=== PATIENT | female | born 1985 | race Caucasian/White ===

== ENCOUNTER 2022-08-10 06:40 | Inpatient (IN) ==
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
[2022-08-10 06:28] LABS: Basophils # (auto) 0.04 K/uL (0-0.2); Basophils % (auto) 0.5 %; Eosinophils # (auto) 0.11 K/uL (0-0.50); Eosinophils % (auto) 1.3 %; Hematocrit (blood only) 34.2 % (34.1-44.9); Hemoglobin 12.3 g/dl (12.0-16.0); Immature Granulocytes # (auto) 0.07 K/uL (0.00-0.02); Immature Granulocytes % (auto) 0.8 %; Lymphocytes # (auto) 1.24 K/uL (1.2-3.4); Mean Corpuscular Hemoglobin 34.1 pg (25.0-34.0); Mean Corpuscular Volume 94.7 fL (80.0-100.0); Monocytes # (auto) 0.47 K/uL (0.24-0.82); Monocytes % (auto) 5.7 %; Neutrophils # (auto) 6.35 K/uL (1.4-6.5); Neutrophils % (auto) 76.7 %; Platelet Count 182 K/uL (130-400); RDW Coefficient of Variation 12.5 % (11.5-14.5); RDW Standard Deviation 42.9 fL (36.4-46.3); Red Blood Count 3.61 M/uL (3.93-5.22); White Blood Count 8.28 K/ul (4.8-10.8)
[~2022-08-10 06:40] MED LIST: SODIUM CHLORIDE 0.9% 250 ML IV PRN
[2022-08-10] MEDS ORDERED: LACTATED RINGER'S 1,000 ML IV SCH ×2 (07:15→09:15)
[2022-08-10] MEDS ORDERED: CITRIC ACID/SODIUM CITRATE 15 ML UDC ONE (07:37)
[2022-08-10] MEDS ORDERED: PROMETHAZINE HCL 25 MG in SODIUM CHLORIDE 0.9% 50 ML IV PRN (07:43)
[2022-08-10] MEDS ORDERED: NALOXONE HCL 1 MG in SODIUM CHLORIDE 0.9% 1000ML 1,000 ML IV PRN (07:43)
[2022-08-10] MEDS ORDERED: NALOXONE HCL 0.4 MG/1 ML VIAL/CARP IV PRN (07:43)
[2022-08-10] MEDS ORDERED: ePHEDrine sulfate 50 MG/ML AMP IV PRN (07:43)
[2022-08-10] MEDS ORDERED: HYDROmorphone INJ 0.5 MG/0.5 ML SYR IV PRN (07:43)
[2022-08-10] MEDS ORDERED: NALOXONE HCL 0.08 MG in SYRINGE 1.8 ML IV PRN (07:43)
[2022-08-10] MEDS ORDERED: MoRPHine SULFATE 2 MG/ML CARP IV PRN (07:43)
[2022-08-10] MEDS ORDERED: LACTATED RINGER'S 500 ML IV PRN (07:43)
[2022-08-10] MEDS ORDERED: MoRPHine SULFATE PF 1 MG/ML 10 ML AMP/VIAL INT SPINAL ONE (07:43)
[2022-08-10] MEDS ORDERED: ONDANSETRON INJ 2 MG/ML 2 ML VIAL IV PRN (07:43)
[2022-08-10] MEDS ORDERED: DC INTRASPINAL MORPHINE SCH (07:45)
[2022-08-10] MEDS ORDERED: MoRPHine SULFATE PF 1 MG/ML 10 ML AMP/VIAL ONE (07:45)
[2022-08-10] MEDS ORDERED: SODIUM CHLORIDE 0.9% 1000ML 1,000 ML IV SCH (07:45)
[2022-08-10] MEDS ORDERED: NO NARCOTICS OR SEDATIVES SCH (07:45)
[2022-08-10] MEDS ORDERED: OXYTOCIN 10 UNITS/ML 10ML VIAL ONE (08:50)
[2022-08-10] MEDS ORDERED: PHENYLEPHRINE 100MCG/ML 5ML SYR ONE (08:50)
[2022-08-10] MEDS ORDERED: ePHEDrine sulfate 50 MG/ML SYR ONE (08:50)
--- NOTE | 2022-08-10 09:09 | History & Physical Bridge Note ---
Date of Service August 10, 2022 History & Physical Bridge Note I have examined the patient, reviewed the History & Physical and in the interval since the performance of the History & Physical I have noted the following changes of clinical significance: no changes noted
[2022-08-10] MEDS ORDERED: BENZOCAINE 20% AER SPR 82.5 GM CAN EXT PRN (09:13)
[2022-08-10] MEDS ORDERED: SENNA 8.6 MG TAB PO PRN (09:13)
[2022-08-10] MEDS ORDERED: DIPHTHERIA/TETANUS/PERTUSSIS 0.5 ML SYR/VIAL IM ONE (09:13)
[2022-08-10] MEDS ORDERED: HYDROCORTISONE ACETATE 25 MG SUPP PR PRN (09:13)
[2022-08-10] MEDS ORDERED: MAGNESIUM HYDROXIDE SUSP 30 ML UDC PO PRN (09:13)
--- NOTE | 2022-08-10 09:16 | Post Operative Brief Note ---
Immediate Post Op Note v1 Date of Surgery August 10, 2022 Pre & Post Diagnosis Operation Date: 08/10/22 07:30 Pre-Op Diagnosis: 1. Elective Repeat Section 2. Voluntary Sterilization Post-Op Diagnosis: 1. Same I identified the patient and participated in the time-out.: Yes Procedure Operation Date: 08/10/22 07:30 Actual Procedures p Section in LD; Repeat Lower Uterine Transverse Section for the of a live boy at 0820.(Bilateral) - Huan Sandoval MD Surgeon Huan Sandoval MD Global Cmo Dr. Suh Estimated Blood Loss 600 Findings Consistent with Post-Op Diagnosis live male Apgars 8/9 weight pending Fluids LR Specimens placenta bilateral fallopian tubes Drains Gudino Catheter Anesthesia Type Spinal Complications none Overlapping Procedure I was present for: the critical portions of procedure. I was immediately available: during the entire case. Back up surgeon: used during listed procedure.
[2022-08-10] MEDS: diphenhydrAMINE 50 MG/ML VIAL IV PRN ×2 (10:15→20:28)
[2022-08-10] MEDS ORDERED: miSOPROStoL 200 MCG TAB ONE (10:27)
[2022-08-10] MEDS ORDERED: OXYTOCIN 30 UNITS/500ML NSS IV ONE (10:28)
[2022-08-10] MEDS ORDERED: METHYLERGONOVINE MALEATE 0.2 MG/ML AMP ONE (10:30)
[2022-08-10] MEDS ORDERED: METHYLERGONOVINE MALEATE 0.2 MG/ML AMP IM STA (10:36)
[2022-08-10] MEDS ORDERED: miSOPROStoL 200 MCG TAB PR ONE (10:36)
--- NOTE | 2022-08-10 10:38 | Obstetrical Progress Note ---
Date of Service August 10, 2022 Subjective continues to pass large clots Physical Exam Constitutional WD/WN, vitals as above Cytotec 1000 mcg placed rectally Methergine .2 mg IM given Results & Data ([facility]) Vital Signs (Past 12 Hours) Vital Signs Temp Pulse Resp BP Pulse Ox O2 Del Method 08/10/22 10:04 16 08/10/22 09:54 16 08/10/22 09:44 14 08/10/22 09:34 18 08/10/22 09:24 16 08/10/22 09:13 36.4 C L 18 08/10/22 10:35 67 98/52 L 08/10/22 10:34 71 100 08/10/22 10:29 81 100 08/10/22 10:30 110/55 L 08/10/22 10:28 69 104/54 L 08/10/22 10:24 72 100 08/10/22 10:19 80 100 08/10/22 10:14 100 08/10/22 10:14 82 08/10/22 10:14 85 114/62 08/10/22 10:09 82 100 08/10/22 10:04 92 H 111/72 98 08/10/22 09:59 71 99 08/10/22 09:54 107 H 97 08/10/22 09:49 97 H 98 08/10/22 09:48 86 128/87 08/10/22 09:44 76 97 08/10/22 09:39 88 97 08/10/22 09:34 81 110/57 L 97 08/10/22 09:29 87 97 08/10/22 09:24 98 08/10/22 09:24 81 08/10/22 09:24 92 H 109/68 08/10/22 09:19 85 94 08/10/22 09:14 94 08/10/22 09:14 84 08/10/22 09:14 81 94 08/10/22 09:13 92 H 118/64 08/10/22 07:17 76 128/74 08/10/22 06:08 18 08/10/22 06:08 36.7 C 18 08/10/22 05:57 36.7 C 18 Room Air
[2022-08-10] MEDS: KETOROLAC 30 MG/ML VIAL IV PRN ×2 (10:43→17:03)
[2022-08-10] MEDS: OXYTOCIN 30 UNITS in LACTATED RINGER'S 1,000 ML IV SCH ×2 (11:11→15:19)
[2022-08-10] MEDS ORDERED: ACETAMINOPHEN 1,000 MG/100 ML VIAL IV STA (13:59)
[2022-08-10] MEDS: SIMETHICONE 80 MG CHEW PO SCH ×3 (14:32→20:28)
--- NOTE | 2022-08-10 14:57 | Anesthesiology Progress Note ---
Date of Service August 10, 2022 Anesthesia Post Procedure Vital Signs Vital Signs: Temp Pulse Resp BP Pulse Ox O2 Del Method 08/10/22 13:45 18 08/10/22 11:14 36.7 C 20 08/10/22 11:14 18 08/10/22 10:44 22 08/10/22 10:14 20 08/10/22 10:04 16 08/10/22 09:54 16 08/10/22 09:44 14 08/10/22 09:34 18 08/10/22 09:24 16 08/10/22 09:13 36.4 C L 18 08/10/22 14:54 91 H 98 08/10/22 14:49 101 H 97 08/10/22 14:44 98 H 97 08/10/22 14:39 109 H 99 08/10/22 14:34 105 H 99 08/10/22 14:29 106 H 97 08/10/22 14:24 94 H 98 08/10/22 14:19 89 99 08/10/22 14:14 107 H 100 08/10/22 14:09 98 H 99 08/10/22 14:04 90 98 08/10/22 13:59 100 H 99 08/10/22 13:54 96 H 98 08/10/22 13:49 97 08/10/22 13:49 102 H 08/10/22 13:49 84 107/66 08/10/22 13:44 122 H 100 08/10/22 13:39 110 H 99 08/10/22 13:34 109 H 99 08/10/22 13:29 111 H 98 08/10/22 13:24 86 100 08/10/22 13:19 82 99 08/10/22 13:14 80 100 08/10/22 13:09 91 H 100 08/10/22 13:04 75 100 08/10/22 12:59 98 H 100 08/10/22 12:54 98 H 100 08/10/22 12:49 115 H 98 08/10/22 12:44 125 H 98 08/10/22 12:39 122 H 98 08/10/22 12:34 112 H 97 08/10/22 12:29 129 H 97 08/10/22 12:24 100 H 97 08/10/22 12:19 114 H 98 08/10/22 12:14 102 H 97 08/10/22 12:09 109 H 97 08/10/22 12:04 94 H 99 08/10/22 11:59 111 H 99 08/10/22 11:54 110 H 99 08/10/22 11:49 112 H 100 08/10/22 11:47 103 H 148/86 H 08/10/22 11:44 105 H 98 08/10/22 11:39 60 98 08/10/22 11:34 70 97 08/10/22 11:31 65 112/69 08/10/22 11:29 65 99 08/10/22 11:24 71 99 08/10/22 11:19 75 100 08/10/22 11:17 62 104/56 L 08/10/22 11:14 78 99 08/10/22 11:09 76 100 08/10/22 11:04 64 100 08/10/22 11:03 70 124/67 08/10/22 10:59 75 100 08/10/22 10:54 84 100 08/10/22 10:55 67 114/70 08/10/22 10:51 66 107/55 L 08/10/22 10:49 73 100 08/10/22 10:47 75 131/82 08/10/22 10:44 75 99 08/10/22 10:42 78 114/63 08/10/22 10:40 80 114/66 08/10/22 10:39 69 100 08/10/22 10:38 67 104/53 L 08/10/22 10:36 65 105/57 L 08/10/22 10:35 67 98/52 L 08/10/22 10:34 71 100 08/10/22 10:29 81 100 08/10/22 10:30 110/55 L 08/10/22 10:28 69 104/54 L 08/10/22 10:24 72 100 08/10/22 10:19 80 100 08/10/22 10:14 100 08/10/22 10:14 82 08/10/22 10:14 85 114/62 08/10/22 10:09 82 100 08/10/22 10:04 92 H 111/72 98 08/10/22 09:59 71 99 08/10/22 09:54 107 H 97 08/10/22 09:49 97 H 98 08/10/22 09:48 86 128/87 08/10/22 09:44 76 97 08/10/22 09:39 88 97 08/10/22 09:34 81 110/57 L 97 08/10/22 09:29 87 97 08/10/22 09:24 98 08/10/22 09:24 81 08/10/22 09:24 92 H 109/68 08/10/22 09:19 85 94 08/10/22 09:14 94 08/10/22 09:14 84 08/10/22 09:14 81 94 08/10/22 09:13 92 H 118/64 08/10/22 07:17 76 128/74 08/10/22 06:08 18 08/10/22 06:08 36.7 C 18 08/10/22 05:57 36.7 C 18 Room Air Transfer of Care Handoff Completed per policy Notes Mental Status: alert / awake / arousable and participated in evaluation Patient Amnestic to Procedure: Yes Nausea / Vomiting: adequately controlled Pain: adequately controlled Airway Patency, RR, SpO2: stable & adequate BP & HR: stable & adequate Hydration State: stable & adequate Anesthetic Complications: no major complications apparent
[2022-08-10] MEDS: NALBUPHINE HCL INJ 10 MG/ML AMP IV PRN ×3 (15:53→23:54)
[2022-08-10] MEDS: DOCUSATE SODIUM 100 MG CAP PO SCH (20:28)
--- NOTE | 2022-08-10 23:29 | Operative Report (OR) ---
DATE OF SURGERY: 08/10/2022. PREOPERATIVE DIAGNOSES: Term elective repeat section and voluntary sterilization procedure. POSTOPERATIVE DIAGNOSES: Term elective repeat section and voluntary sterilization procedure . SURGEON: Huan Sandoval MD. SURGICAL ELASTIC KNITTER HAND FRAME: Shagufta Suh MD. ESTIMATED BLOOD LOSS: 600 mL. FINDINGS: Live male, Apgars 8 and 9, weight pending. SPECIMENS: Placenta and fallopian tubes. DRAINS: Gudino. ANESTHESIA: Spinal. COMPLICATIONS: None. CLINICAL HISTORY: The patient is a 37-year-old female, para 5-0-2-5, at 39 weeks and 3 days, admitte d for an elective repeat section and bilateral salpingectomy. The patient refused to underg o a trial of labor. She would like her tubes tied at the same time. I gave her informed consent incl uding risks, benefits, and alternatives of the procedure and the reasons behind the salpingectomy rat her than a tubal ligation. DESCRIPTION OF PROCEDURE: Under satisfactory spinal anesthesia, the patient was prepped and draped i n the usual sterile fashion. A low Pfannenstiel incision through a prior scar was then made entering into the abdominal cavity in successive layers without difficulty. Upon entering into the abdominal cavity, the uterus was noted to be dextrorotated. Bladder flap was made sharply dissecting down usi ng Metzenbaum scissors. A low segment transverse incision over the lower uterine segment was made. The incision was widened in the AP diameter. The amniotic sac was nicked and found to be clear. was then delivered wi th the aid of fundal pressure by Dr. Suh, delivering a live male from the vertex presentation. The cord was doubly clamped and cut after a 1 minute cord delay. Apgars were 8 and 9. weight was pending. Cord blood was obtained. Placenta was then delivered spontaneously and intact. Uterus was expressed of all clots and debris. Ring forceps were then placed on both angles, another ring was then used to dilate the cervix. The uterus was closed in a single layer closure using 0 Xavier ryl suture in a continuous interlocking fashion. Incision was dry. No active bleeding was noted. B oth tubes, ovaries were inspected and found to be within normal limits. Right tube was then identified. Baxley clamp was then applied to the tube and using the handheld RadioFrame gaSure device, the tube was cut free without any difficulty. Same procedure was done on the opposite side without difficulty. The specimens were then removed and submitted to pathology as a separate s pecimen. No active bleeding was noted. The uterus was then placed back into the normal anatomical p osition. The initial sponge, needle, and instrument counts were found to be correct. Contents of th e pelvic and abdominal cavity were then irrigated to clear. The muscle was then reapproximated with several interrupted 0 Vicryl sutures. Fascia was then reappr oximated from both ends using 0 Vicryl suture. Subcuticular layer was then closed with 2-0 plain sut ure and the skin was then reapproximated with a 4-0 Monocryl suture. Steri-Strips were applied. Favian ar urine was noted from the Gudino. Estimated blood loss 600 mL. Final sponge, needle and instrument counts were found to be correct. The patient was then placed supine on a stretcher and taken to brendan very room in stable condition. Please note that Dr. Suh was needed for providing retraction, help with pushing the baby out and he lp with closure of the uterus. Job ID: [id number]
[2022-08-10] MEDS ORDERED: Nursing to Pharmacy Communication SCH (23:45)
[2022-08-11] MEDS: NALBUPHINE HCL INJ 10 MG/ML AMP IV PRN (00:12)
[2022-08-11] MEDS: oxyCODONE/ACETAMINOPHEN 5mg/325mg TAB PO PRN ×6 (00:16→22:35)
[2022-08-11] MEDS: IBUPROFEN 600 MG TAB PO PRN ×6 (00:17→22:32)
[2022-08-11] MEDS ORDERED: ONDANSETRON INJ 2 MG/ML 2 ML VIAL IV PRN (01:43)
[2022-08-11] MEDS ORDERED: KETOROLAC 30 MG/ML VIAL IV PRN (01:43)
[2022-08-11] MEDS ORDERED: diphenhydrAMINE 50 MG/ML VIAL IV PRN (01:43)
[2022-08-11] MEDS ORDERED: MEPERIDINE HCL 50 MG/ML CARP IV PRN (01:43)
[2022-08-11] MEDS ORDERED: PROMETHAZINE HCL 25 MG in SODIUM CHLORIDE 0.9% 50 ML IV PRN (01:43)
[2022-08-11] MEDS ORDERED: diphenhydrAMINE Capsule 25 MG CAP PO PRN (01:43)
[2022-08-11] MEDS ORDERED: oxyCODONE/ACETAMINOPHEN 5mg/325mg TAB PO PRN (01:43)
[2022-08-11] MEDS ORDERED: CITRIC ACID/SODIUM CITRATE 15 ML UDC PO SCH (06:00)
[2022-08-11 07:02] LABS: Hematocrit (blood only) 20.5 % (34.1-44.9); Hemoglobin 7.2 g/dl (12.0-16.0); Mean Corpuscular Hemoglobin 33.8 pg (25.0-34.0); Mean Corpuscular Hgb Conc 35.1 g/dL (32.0-36.0); Mean Corpuscular Volume 96.2 fL (80.0-100.0); Mean Platelet Volume 10.5 fL (9.4-12.3); Platelet Count 154 K/uL (130-400); RDW Coefficient of Variation 12.8 % (11.5-14.5); RDW Standard Deviation 44.2 fL (36.4-46.3); Red Blood Count 2.13 M/uL (3.93-5.22); White Blood Count 11.15 K/ul (4.8-10.8)
[2022-08-11 07:16] LABS: Basophils # (auto) 0.03 K/uL (0-0.2); Basophils % (auto) 0.3 %; Eosinophils # (auto) 0.08 K/uL (0-0.50); Eosinophils % (auto) 0.7 %; Immature Granulocytes # (auto) 0.09 K/uL (0.00-0.02); Immature Granulocytes % (auto) 0.8 %; Lymphocytes # (auto) 0.67 K/uL (1.2-3.4); Monocytes # (auto) 0.38 K/uL (0.24-0.82); Monocytes % (auto) 3.4 %; Neutrophils % (auto) 88.8 %
[2022-08-11] MEDS ORDERED: FERROUS SULFATE 325 MG TAB PO SCH (08:00)
--- NOTE | 2022-08-11 08:30 | Obstetrical Progress Note ---
Date of Service August 11, 2022 Assessment & Plan Admission and Anticipated Discharge Date Admission Date: August 10, 2022 Subjective Patient is seen and examined. She feels well, no complaints. Pain is under control with oral meds. Ambulating without dizziness Voiding without difficulty Tolerating regular diet with out N&V Flatus + BM neg Bleeding is minimal No fever/ chills/ CP/ SOB/ N&V/ Leg pain Breast feeding without problems Vital Signs Temp Pulse Resp BP Pulse Ox O2 Del Method 08/11/22 07:20 36.9 C 72 18 104/59 L 94 Room Air 08/11/22 02:05 36.7 C 89 18 112/69 98 Room Air 08/11/22 02:05 18 98 08/11/22 01:05 18 96 08/11/22 00:21 18 97 08/10/22 23:25 18 97 08/10/22 23:25 Room Air 08/10/22 23:25 36.5 C 85 18 117/69 97 Room Air 08/10/22 21:55 16 99 08/10/22 21:00 18 98 Lab Results 08/10/22 08/10/22 08/11/22 Range/Units 06:15 06:15 06:11 WBC 8.28 (4.8-10.8) K/ul RBC 3.61 L (3.93-5.22) M/uL Hgb 12.3 (12.0-16.0) g/dl Hct 34.2 (34.1-44.9) % MCV 94.7 (80.0-100.0) fL MCH 34.1 H (25.0-34.0) pg MCHC 36.0 (32.0-36.0) g/dL RDW Std Deviation 42.9 (36.4-46.3) fL RDW Coeff of Kmy 12.5 (11.5-14.5) % Plt Count 182 (130-400) K/uL MPV 10.0 (9.4-12.3) fL Immature Gran % (Auto) 0.8 % Neut % (Auto) 76.7 % Lymph % (Auto) 15.0 % [place] % (Auto) 5.7 % Eos % (Auto) 1.3 % Baso % (Auto) 0.5 % Neut # (Auto) 6.35 (1.4-6.5) K/uL Lymph # (Auto) 1.24 (1.2-3.4) K/uL [place] # (Auto) 0.47 (0.24-0.82) K/uL Eos # (Auto) 0.11 (0-0.50) K/uL Baso # (Auto) 0.04 (0-0.2) K/uL Immature Gran # (Auto) 0.07 H (0.00-0.02) K/uL Blood Type B Negative B Negative Antibody Screen NEGATIVE Cancelled Screen Negative (Negative) Crossmatch See Detail 08/11/22 Range/Units 06:11 WBC 11.15 H (4.8-10.8) K/ul RBC 2.13 L (3.93-5.22) M/uL Hgb 7.2 L D (12.0-16.0) g/dl Hct 20.5 L* (34.1-44.9) % MCV 96.2 (80.0-100.0) fL MCH 33.8 (25.0-34.0) pg MCHC 35.1 (32.0-36.0) g/dL RDW Std Deviation 44.2 (36.4-46.3) fL RDW Coeff of Kym 12.8 (11.5-14.5) % Plt Count 154 (130-400) K/uL MPV 10.5 (9.4-12.3) fL Immature Gran % (Auto) 0.8 % Neut % (Auto) 88.8 % Lymph % (Auto) 6.0 % [place] % (Auto) 3.4 % Eos % (Auto) 0.7 % Baso % (Auto) 0.3 % Neut # (Auto) 9.90 H (1.4-6.5) K/uL Lymph # (Auto) 0.67 L (1.2-3.4) K/uL [place] # (Auto) 0.38 (0.24-0.82) K/uL Eos # (Auto) 0.08 (0-0.50) K/uL Baso # (Auto) 0.03 (0-0.2) K/uL Immature Gran # (Auto) 0.09 H (0.00-0.02) K/uL Blood Type Antibody Screen Screen (Negative) Crossmatch PE: General: Alert, orientedx3, NAD CVS: S1S2 RRR Lungs; CTAB Abd: soft, NT, ND, BS+, fundus firm, below Umbilicus Incision/ Dressing: Clean, dry, intact Perineum intact, Lochia rubra minimal Ext; NT, trace edema, Homans sign neg/ neg AP: 37 yo s/p RC Section, pod# 1 VSS Afebrile doing well Anemic, asymptomatic Discussed Blood transfusion vs IV iron and she prefers IV iron and contimue with PO Venofer IV once today Methergine PO Continue routine postop care Encourage ambulation, PO intake All questions were answered Results & Data ([facility]) Vital Signs (Past 12 Hours) Vital Signs Temp Pulse Resp BP Pulse Ox O2 Del Method 08/11/22 07:20 36.9 C 72 18 104/59 L 94 Room Air 08/11/22 02:05 36.7 C 89 18 112/69 98 Room Air 08/11/22 02:05 18 98 08/11/22 01:05 18 96 08/11/22 00:21 18 97 08/10/22 23:25 18 97 08/10/22 23:25 Room Air 08/10/22 23:25 36.5 C 85 18 117/69 97 Room Air 08/10/22 21:55 16 99 08/10/22 21:00 18 98
[2022-08-11] MEDS: SIMETHICONE 80 MG CHEW PO SCH ×4 (08:47→20:13)
[2022-08-11] MEDS: PRENATAL VITAMIN 1 TAB PO SCH (08:47)
[2022-08-11] MEDS: DOCUSATE SODIUM 100 MG CAP PO SCH ×2 (08:48→20:13)
[2022-08-11] MEDS ORDERED: NON-FORMULARY MEDICATION (Multivitamin Tablet) PO SCH (09:00)
[2022-08-11] MEDS ORDERED: IRON SUCROSE 200 MG in 0.9 % SODIUM CHLORIDE 100 ML IV ONE (09:00)
[2022-08-11] MEDS ORDERED: DOCUSATE SODIUM 100 MG CAP PO SCH (09:00)
[2022-08-11] MEDS: METHYLERGONOVINE MALEATE 0.2 MG TAB PO SCH ×5 (09:47→23:59)
[2022-08-11] MEDS ORDERED: METHYLERGONOVINE MALEATE 0.2 MG/ML AMP IM STA (10:04)
[2022-08-11] MEDS ORDERED: OXYTOCIN 10 UNITS/ML 10ML VIAL IM ONE (10:04)
[2022-08-11] MEDS: METHYLERGONOVINE MALEATE 0.2 MG/ML AMP ONE ×2 (10:05→10:16)
[2022-08-11] MEDS: OXYTOCIN 10 UNITS/ML VIAL ONE ×2 (10:06→10:16)
[2022-08-11] MEDS: FERROUS SULFATE 325 MG TAB PO SCH ×2 (10:17→20:13)
[2022-08-11] MEDS: SUCRALFATE 1 GM TAB PO SCH (10:31)
[2022-08-11 13:15] LABS: Hematocrit (blood only) 21.7 % (34.1-44.9); Hemoglobin 7.7 g/dl (12.0-16.0)
[2022-08-11] MEDS: PANTOprazole 40 MG TAB PO SCH (16:11)
[2022-08-11] MEDS ORDERED: bisacodyL 5 MG TABEC PO SCH (20:00)
[2022-08-12] MEDS: METHYLERGONOVINE MALEATE 0.2 MG TAB PO SCH (03:45)
[2022-08-12] MEDS: IBUPROFEN 600 MG TAB PO PRN ×3 (06:13→17:34)
[2022-08-12] MEDS: oxyCODONE/ACETAMINOPHEN 5mg/325mg TAB PO PRN ×3 (06:13→17:33)
[2022-08-12] MEDS: SUCRALFATE 1 GM TAB PO SCH (07:44)
[2022-08-12 08:02] LABS: Hematocrit (blood only) 20.9 % (34.1-44.9); Hemoglobin 7.2 g/dl (12.0-16.0)
[2022-08-12] MEDS ORDERED: bisacodyL 10 MG SUPP PR PRN (09:11)
[2022-08-12] MEDS: FERROUS SULFATE 325 MG TAB PO SCH (10:07)
[2022-08-12] MEDS: PRENATAL VITAMIN 1 TAB PO SCH (10:07)
[2022-08-12] MEDS: SIMETHICONE 80 MG CHEW PO SCH ×3 (10:07→17:33)
[2022-08-12] MEDS: DOCUSATE SODIUM 100 MG CAP PO SCH (10:07)
[2022-08-12] MEDS: PANTOprazole 40 MG TAB PO SCH (10:08)
--- NOTE | 2022-08-12 10:39 | Obstetrical Progress Note ---
Date of Service August 12, 2022 Assessment & Plan (1) delivery delivered: c/sex day #2 pt doing well improved bleeding d/c home with instrcutions Subjective Ambulation: ambulating normally Voiding: no voiding problems Passing Gas:: Yes Diet Tolerance:: clear liquids Lochia:: Small Feeding Type:: breast feeding Review of Systems All systems reviewed & are unremarkable except as noted in HPI & below Physical Exam Constitutional WD/WN, vitals as above well developed and well nourished Eyes PERRL, conjunctivae normal, anicteric sclerae ENMT external ear and nose normal, oropharynx normal Neck trachea midline, no thyromegaly Respiratory normal respiratory effort, lungs clear to auscultation Cardiovascular RRR, no murmur, no edema Chest (Breasts) normal inspection/palpation of breasts Gastrointestinal (Abdomen) normal bowel sounds, soft, nontender, no hepatosplenomegaly Musculoskeletal no cyanosis or clubbing, extremities motor strength 5/5 Skin no rashes, warm and dry + incision (Clean,dry and intact) Neurologic patellar DTR's 2+ bilat, sensation intact Psychiatric A+Ox3, euthymic affect Genitourinary normal external appearance Lymphatic no cervical or axillary lymphadenopathy Results & Data ([facility]) Vital Signs (Past 12 Hours) Vital Signs Temp Pulse Resp BP Pulse Ox O2 Del Method 08/12/22 07:35 36.9 C 91 H 16 129/82 97 Room Air 08/12/22 00:00 36.7 C 82 18 91/67 L
== END 2022-08-12 19:30 | disposition home or self-care (01) | DRG 785 ==
LOC: ASU 06:40 → 4S1 06:49 → 4E1 15:10

== ENCOUNTER 2022-08-31 06:40 | Inpatient (IN) ==
[2022-08-31 06:51] LABS: Basophils # (auto) 0.03 K/uL (0-0.2); Basophils % (auto) 0.4 %; Eosinophils # (auto) 0.07 K/uL (0-0.50); Eosinophils % (auto) 0.9 %; Hematocrit (blood only) 23.9 % (34.1-44.9); Immature Granulocytes % (auto) 1.3 %; Lymphocytes # (auto) 1.91 K/uL (1.2-3.4); Lymphocytes % (auto) 24.6 %; Mean Corpuscular Hemoglobin 32.5 pg (25.0-34.0); Mean Corpuscular Hgb Conc 33.5 g/dL (32.0-36.0); Mean Corpuscular Volume 97.2 fL (80.0-100.0); Mean Platelet Volume 9.1 fL (9.4-12.3); Monocytes # (auto) 0.54 K/uL (0.24-0.82); Monocytes % (auto) 6.9 %; Neutrophils # (auto) 5.13 K/uL (1.4-6.5); Neutrophils % (auto) 65.9 %; Platelet Count 320 K/uL (130-400); RDW Coefficient of Variation 12.6 % (11.5-14.5); RDW Standard Deviation 44.7 fL (36.4-46.3); Red Blood Count 2.46 M/uL (3.93-5.22); White Blood Count 7.78 K/ul (4.8-10.8)
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
[2022-08-31 07:20] LABS: Albumin Globulin Ratio 1.4 (0.9-2); BUN Creatinine Ratio 22.4 (10-20); Bilirubin,Total 0.2 mg/dl (0.2-1.0); Calcium 7.8 mg/dl (8.5-10.1); Creatinine Clr Calc Pharmacy 124.3 ml/min; Est GFR (African American) 136.5 ml/min; Est GFR (Non-African American) 117.8 ml/min; Globulin 2.2 gm/dl (2.5-4.0); Total Protein 5.2 gm/dl (6.0-8.3)
[2022-08-31] MEDS ORDERED: OXYTOCIN 30 UNITS/500 ML BAG IV PRN (07:24)
[2022-08-31] MEDS ORDERED: METHYLERGONOVINE MALEATE 0.2 MG/ML AMP IM PRN (07:38)
[2022-08-31] MEDS ORDERED: TRANEXAMIC ACID / 0.7% NACL 1,000 MG/100 ML BAG IV STA ×2 (07:38→08:12)
[2022-08-31] MEDS ORDERED: OXYTOCIN 20 UNITS in LACTATED RINGER'S 1,000 ML IV SCH ×2 (07:45→10:30)
[2022-08-31] MEDS ORDERED: predniSONE 50 MG TAB PO SCH (09:00)
--- NOTE | 2022-08-31 09:11 | Ultrasound Report ---
PELVIC ULTRASOUND CLINICAL HISTORY: bleeding. Status post section of August 10, 2022. COMPARISON STUDY: ultrasound May 20, 2013. TECHNIQUE: Transabdominal and transvaginal sonography of the pelvis was performed. FINDINGS: Uterus measures 12.4 x 6.4 x 7.9 cm. Endometrium measures 1.1 cm in thickness. No areas of increased vascularity within the endometrium are noted. Endometrial thickness is within normal limits . Suspected section scar is noted. This is within normal limits. The ovaries were not visual ized. No adnexal mass. There is no free fluid. IMPRESSION: 1. Normal endometrial thickness. No areas of increased vascularity within the endometrium. No sonogra phic evidence for retained products of conception. 2. Nonvisualization of the ovaries. ACT 112: Negative or not required by law. Electronically signed by: Omar Rodriguez M.D. 08/31/2022 9:10 AM
[2022-08-31] MEDS ORDERED: ACETAMINOPHEN 500 MG TAB PO STA (09:57)
--- NOTE | 2022-08-31 10:40 | Progress Note ---
Date of Service August 31, 2022 Results & Data ([facility]) Vital Signs (Past 12 Hours) Vital Signs Temp Pulse Resp BP Pulse Ox O2 Del Method 08/31/22 10:00 73 23 137/90 96 08/31/22 09:31 54 L 19 127/71 94 08/31/22 09:00 57 L 20 117/83 96 08/31/22 08:50 56 L 23 126/68 96 08/31/22 08:00 54 L 22 154/84 H 99 08/31/22 07:31 71 22 129/77 99 08/31/22 07:25 73 22 156/87 H 99 08/31/22 06:45 36.8 C 68 20 142/80 H 99 Room Air Medications Administered PPH s/p c/sec on 08/10/22 pt seen and evaluated in ER Pelvic sono is unremarkable stable h/h admit for 24hr observation
[2022-08-31] MEDS ORDERED: IRON SUCROSE 200 MG in 0.9 % SODIUM CHLORIDE 100 ML IV ONE (11:00)
--- NOTE | 2022-08-31 11:16 | History and Physical Report ---
DATE OF ADMISSION: 08/31/2022 HISTORY OF PRESENT ILLNESS: The patient is a 37-year-old status post section on 08/10/2022. This was her sixth delivery. Postoperatively, the patient experienced hemorrhage. She was managed and stabilized, to home on 08/12/2022. Since her discharge, she has had some bleeding on and off. The patient showed up at [facility] Emergency Room on 08/30/2022 with passing heavy cl ots and with severe bleeding. Ultrasound was done. She received IV fluids and some medications. Th e ER at [facility] was concerned and decided to transfer her to the ER at [facility]. On arrival to [facility], she had some shortness of breath, but no chills, no fever. Bleeding was minimal upon arrival to the Emergency Room. CBC done on arrival to the [facility] Room was 8.0. Of note is the fact that on her discharge on 08/12/2022, hemoglobin was 7.2. She was seen in the ER and evaluated and an ultrasound was done. The ultrasound done in the Emergency R oom here at [facility] showed a normal endometrial thickness. No area of viscosity with endometrium. This is very different from what was done a few hours ago at [facility] where the uterus was seen to be filled with what was suspected to be products of conception and increased vascularity. PAST MEDICAL HISTORY: No history of diabetes, hypertension, or asthma. PAST SURGICAL HISTORY: History of sections, EGDs, tonsillectomy, hernia and tibial fracture . SOCIAL HISTORY: The patient denies tobacco, drug or alcohol use. OBSTETRICAL AND GYNECOLOGIC HISTORY: The patient has had 6 deliveries. PHYSICAL EXAMINATION: GENERAL: Well-developed, well-nourished white female in no acute distress. The patient is resting c omfortably in bed. VITAL SIGNS: Blood pressure 137/90, pulse 73, respirations 23, temperature 36.8. HEART: S1 and S2, regular rhythm and rate. LUNGS: Clear to auscultation bilaterally. ABDOMEN: Nontender, nondistended. PELVIC: The patient had mild clots in the vagina, which were evacuated. Cervix appeared grossly nor mal. Uterus was firm. EXTREMITIES: No cyanosis, clubbing or edema. LABORATORIES: As stated above, CBC on arrival showed hemoglobin of 8.0, hematocrit of 23.9, platelet s of 320. ASSESSMENT AND PLAN: A 37-year-old status post section on 08/10/2022, patient experienced p ostpartum bleeding at the time of section. She was stabilized and discharged home. She has experienced recurrent episode of bleeding and was transferred from the Emergency Room in [facility]. On arrival here, her hemoglobin was 8.0, which is not significant from what she was discharged with. Repeat ultrasound showed no products of conception as compared to what was seen in the [facility] Emergency Room. The patient appears to be stable right now here in the Emergency Room at [facility] . She was given several uterotonics. In view of her presentation, I have decided to keep the patien t overnight for observation. We will continue to give uterotonics, and hopefully, she will be discha rged soon. Job ID: [id number]
[2022-08-31] MEDS ORDERED: NIFEdipine EXTENDED REL 30 MG TABCR PO STA (11:50)
--- NOTE | 2022-08-31 11:53 | Progress Note ---
Date of Service August 31, 2022 Assessment & Plan (1) Elevated BP without diagnosis of hypertension: Plan: H labs within normal limits, ordered protein creatinine ratio to rule out preeclampsia We will start patient on nifedipine 30 mg extended release for hypertension If severe range blood pressures (systolic blood pressure greater than or equal to 160, diastolic blood pressure greater to or equal to 110) will need to be placed on magnesium sulfate for seizure prophylaxis and treated with IV antihypertensives Subjective review of patient BP, noted multiple elevated BP >4 hrs apart. Results & Data ([facility]) Vital Signs (Past 12 Hours) Vital Signs Temp Pulse Pulse Resp BP Pulse Ox O2 Del Method 08/31/22 11:20 80 08/31/22 10:00 73 23 137/90 96 08/31/22 09:31 54 L 19 127/71 94 08/31/22 09:00 57 L 20 117/83 96 08/31/22 08:50 56 L 23 126/68 96 08/31/22 08:00 54 L 22 154/84 H 99 08/31/22 07:31 71 22 129/77 99 08/31/22 07:25 73 22 156/87 H 99 08/31/22 06:45 36.8 C 68 20 142/80 H 99 Room Air
[2022-08-31] MEDS: METHYLERGONOVINE MALEATE 0.2 MG TAB PO SCH ×3 (13:41→20:58)
[2022-08-31] MEDS: ACETAMINOPHEN 325 MG TAB PO PRN (14:06)
[2022-08-31 14:24] LABS: Creatinine Urine Random 34.6 mg/dl; Protein Creatinine Ratio Urine 0.2 (0-0.2); Total Protein Urine Random 8.2 mg/dl (0-11.9)
[2022-08-31] MEDS ORDERED: predniSONE 50 MG TAB PO STA (14:55)
[2022-08-31] MEDS ORDERED: BUTALBITAL/ASA/CAFFEINE/COD 50/325/40/30 MG CAP PO PRN (17:11)
[2022-08-31] MEDS ORDERED: CODEINE SULFATE 30 MG TAB PO PRN (17:18)
[2022-08-31] MEDS ORDERED: BUTALBITAL/ASPIRIN/CAFFEINE 1 TAB TAB PO PRN (17:18)
[2022-08-31] MEDS ORDERED: BUTALBITAL/ACETAMIN/CAFFEINE TAB PO PRN (17:27)
[2022-08-31 19:27] LABS: Basophils # (auto) 0.02 K/uL (0-0.2); Basophils % (auto) 0.3 %; Eosinophils # (auto) 0.04 K/uL (0-0.50); Eosinophils % (auto) 0.6 %; Hematocrit (blood only) 26.3 % (34.1-44.9); Hemoglobin 8.9 g/dl (12.0-16.0); Immature Granulocytes # (auto) 0.16 K/uL (0.00-0.02); Immature Granulocytes % (auto) 2.3 %; Lymphocytes # (auto) 0.49 K/uL (1.2-3.4); Lymphocytes % (auto) 7.2 %; Mean Corpuscular Hemoglobin 31.7 pg (25.0-34.0); Mean Corpuscular Hgb Conc 33.8 g/dL (32.0-36.0); Mean Corpuscular Volume 93.6 fL (80.0-100.0); Mean Platelet Volume 9.1 fL (9.4-12.3); Monocytes % (auto) 1.5 %; Neutrophils # (auto) 6.02 K/uL (1.4-6.5); Neutrophils % (auto) 88.1 %; Nucleated RBC # (auto) 0.02 K/uL (0-0); Nucleated RBC % (auto) 0.3 %; Platelet Count 292 K/uL (130-400); RDW Coefficient of Variation 12.3 % (11.5-14.5); RDW Standard Deviation 42.9 fL (36.4-46.3); Red Blood Count 2.81 M/uL (3.93-5.22); White Blood Count 6.83 K/ul (4.8-10.8)
[2022-08-31] MEDS: DOCUSATE SODIUM 100 MG CAP PO SCH (20:58)
[2022-09-01] MEDS: ACETAMINOPHEN 325 MG TAB PO PRN (06:17)
[2022-09-01 06:23] LABS: Basophils # (auto) 0.01 K/uL (0-0.2); Basophils % (auto) 0.2 %; Eosinophils # (auto) 0.02 K/uL (0-0.50); Eosinophils % (auto) 0.3 %; Hematocrit (blood only) 23.6 % (34.1-44.9); Hemoglobin 8.1 g/dl (12.0-16.0); Immature Granulocytes # (auto) 0.25 K/uL (0.00-0.02); Lymphocytes # (auto) 1.13 K/uL (1.2-3.4); Lymphocytes % (auto) 17.9 %; Mean Corpuscular Hgb Conc 34.3 g/dL (32.0-36.0); Mean Corpuscular Volume 93.3 fL (80.0-100.0); Mean Platelet Volume 9.3 fL (9.4-12.3); Monocytes # (auto) 0.32 K/uL (0.24-0.82); Monocytes % (auto) 5.1 %; Neutrophils # (auto) 4.59 K/uL (1.4-6.5); Neutrophils % (auto) 72.5 %; Nucleated RBC # (auto) 0.02 K/uL (0-0); Nucleated RBC % (auto) 0.3 %; Platelet Count 342 K/uL (130-400); RDW Standard Deviation 40.9 fL (36.4-46.3); Red Blood Count 2.53 M/uL (3.93-5.22); White Blood Count 6.32 K/ul (4.8-10.8)
[2022-09-01] MEDS: DOCUSATE SODIUM 100 MG CAP PO SCH (08:13)
[2022-09-01] MEDS: METHYLERGONOVINE MALEATE 0.2 MG TAB PO SCH ×3 (08:13→16:20)
[2022-09-01] MEDS ORDERED: PRENATAL VITAMIN 1 TAB PO SCH (09:00)
[2022-09-01] MEDS ORDERED: predniSONE 50 MG TAB PO SCH (09:00)
[2022-09-01] MEDS ORDERED: PANTOprazole 40 MG TAB PO SCH (09:00)
--- NOTE | 2022-09-01 09:09 | Obstetrical Progress Note ---
Date of Service September 01, 2022 Assessment & Plan Admission and Anticipated Discharge Date Admission Date: August 31, 2022 Subjective Patient is seen and examined. She feels well, no complaints. Pain is under control with oral Tylenol only. Ambulating without dizziness Voiding without difficulty Tolerating regular diet with out N&V Flatus + BM + Bleeding is minimal No fever/ chills/ CP/ SOB/ N&V/ Leg pain Breast feeding without problems Vital Signs Temp Pulse Resp BP Pulse Ox O2 Del Method 09/01/22 08:00 36.9 C 54 L 16 117/75 99 Room Air 09/01/22 03:27 36.7 C 75 18 125/73 98 Room Air 08/31/22 23:38 36.7 C 87 18 138/80 98 Room Air Vital Signs Temp Pulse Pulse Resp BP BP BP 09/01/22 08:00 36.9 C 54 L 16 117/75 09/01/22 03:27 36.7 C 75 18 125/73 08/31/22 23:38 36.7 C 87 18 138/80 08/31/22 20:00 08/31/22 19:06 36.7 C 85 18 135/79 08/31/22 17:05 145/84 H 08/31/22 14:56 152/80 H 08/31/22 13:00 36.4 C L 61 18 144/87 H 08/31/22 12:10 68 21 141/91 H 08/31/22 11:20 80 08/31/22 10:00 73 23 137/90 08/31/22 09:31 54 L 19 127/71 Pulse Ox O2 Del Method 09/01/22 08:00 99 Room Air 09/01/22 03:27 98 Room Air 08/31/22 23:38 98 Room Air 08/31/22 20:00 Room Air 08/31/22 19:06 98 Room Air 08/31/22 17:05 08/31/22 14:56 08/31/22 13:00 100 Room Air 08/31/22 12:10 99 08/31/22 11:20 08/31/22 10:00 96 08/31/22 09:31 94 Intake and Output 08/31/22 09/01/22 09/01/22 22:59 06:59 14:59 Intake Total 1552 / 2262 Output Total 2250 / 2650 Balance -698 / -388 Intake: IV 1002 / 1712 Oxytocin 20 units In Lactated 1002 / 1002 Ringer's 1,000 ml @ 125 mls/hr IV .[id number] [facility] Rx#:[id number] Oral 550 / 550 Output: Urine 2250 / 2650 Lab Results 08/31/22 08/31/22 08/31/22 Range/Units 06:40 06:40 06:40 WBC 7.78 (4.8-10.8) K/ul RBC 2.46 L (3.93-5.22) M/uL Hgb 8.0 L (12.0-16.0) g/dl Hct 23.9 L (34.1-44.9) % MCV 97.2 (80.0-100.0) fL MCH 32.5 (25.0-34.0) pg MCHC 33.5 (32.0-36.0) g/dL RDW Std Deviation 44.7 (36.4-46.3) fL RDW Coeff of Kym 12.6 (11.5-14.5) % Plt Count 320 (130-400) K/uL MPV 9.1 L (9.4-12.3) fL Immature Gran % (Auto) 1.3 % Neut % (Auto) 65.9 % Lymph % (Auto) 24.6 % [place] % (Auto) 6.9 % Eos % (Auto) 0.9 % Baso % (Auto) 0.4 % Neut # (Auto) 5.13 (1.4-6.5) K/uL Lymph # (Auto) 1.91 (1.2-3.4) K/uL [place] # (Auto) 0.54 (0.24-0.82) K/uL Eos # (Auto) 0.07 (0-0.50) K/uL Baso # (Auto) 0.03 (0-0.2) K/uL Immature Gran # (Auto) 0.10 H (0.00-0.02) K/uL Absolute Nucleated RBC (0-0) K/uL Nucleated RBC % (auto) % Sodium 142 (136-145) mmol/L Potassium 3.0 L (3.5-5.1) mmol/L Chloride 110 H (98-107) mmol/L Carbon Dioxide 26 (21-32) mmol/L Anion Gap 6 (3-11) BUN 13 (6-23) mg/dl Creatinine 0.58 L (0.6-1.2) mg/dl Est Cr Clr Drug Dosing 124.3 ml/min Est GFR ( Amer) 136.5 ml/min Est GFR (Non-Af Amer) 117.8 ml/min BUN/Creatinine Ratio 22.4 H (10-20) Glucose 91 (70-99(Fasting)) mg/dl Calcium 7.8 L (8.5-10.1) mg/dl Total Bilirubin 0.2 (0.2-1.0) mg/dl AST 12 L (13-39) U/L ALT 13 (7-52) U/L Alkaline Phosphatase 58 (34-104) U/L Total Protein 5.2 L (6.0-8.3) gm/dl Albumin 3.0 L (3.4-5.0) gm/dl Globulin 2.2 L (2.5-4.0) gm/dl Albumin/Globulin Ratio 1.4 (0.9-2) HCG, Quant 13 mIU/ml Ur Random Creatinine mg/dl U Random Total Protein (0-11.9) mg/dl Protein/Creatinin Ratio (0-0.2) SARS-CoV-2, RNA, NAAT (NEGATIVE) Blood Type Antibody Screen Antibody Identification Antibody ID Comment 08/31/22 08/31/22 08/31/22 Range/Units 06:53 07:09 13:45 WBC (4.8-10.8) K/ul RBC (3.93-5.22) M/uL Hgb (12.0-16.0) g/dl Hct (34.1-44.9) % MCV (80.0-100.0) fL MCH (25.0-34.0) pg MCHC (32.0-36.0) g/dL RDW Std Deviation (36.4-46.3) fL RDW Coeff of Kym (11.5-14.5) % Plt Count (130-400) K/uL MPV (9.4-12.3) fL Immature Gran % (Auto) % Neut % (Auto) % Lymph % (Auto) % [place] % (Auto) % Eos % (Auto) % Baso % (Auto) % Neut # (Auto) (1.4-6.5) K/uL Lymph # (Auto) (1.2-3.4) K/uL [place] # (Auto) (0.24-0.82) K/uL Eos # (Auto) (0-0.50) K/uL Baso # (Auto) (0-0.2) K/uL Immature Gran # (Auto) (0.00-0.02) K/uL Absolute Nucleated RBC (0-0) K/uL Nucleated RBC % (auto) % Sodium (136-145) mmol/L Potassium (3.5-5.1) mmol/L Chloride (98-107) mmol/L Carbon Dioxide (21-32) mmol/L Anion Gap (3-11) BUN (6-23) mg/dl Creatinine (0.6-1.2) mg/dl Est Cr Clr Drug Dosing ml/min Est GFR ( Amer) ml/min Est GFR (Non-Af Amer) ml/min BUN/Creatinine Ratio (10-20) Glucose (70-99(Fasting)) mg/dl Calcium (8.5-10.1) mg/dl Total Bilirubin (0.2-1.0) mg/dl AST (13-39) U/L ALT (7-52) U/L Alkaline Phosphatase (34-104) U/L Total Protein (6.0-8.3) gm/dl Albumin (3.4-5.0) gm/dl Globulin (2.5-4.0) gm/dl Albumin/Globulin Ratio (0.9-2) HCG, Quant mIU/ml Ur Random Creatinine 34.6 mg/dl U Random Total Protein 8.2 (0-11.9) mg/dl Protein/Creatinin Ratio 0.2 (0-0.2) SARS-CoV-2, RNA, NAAT NEGATIVE (NEGATIVE) Blood Type B Negative Antibody Screen POSITIVE A Antibody Identification Anti-D due to RhIg Antibody ID Comment 08/31/22 09/01/22 Range/Units 19:21 05:51 WBC 6.83 6.32 (4.8-10.8) K/ul RBC 2.81 L 2.53 L (3.93-5.22) M/uL Hgb 8.9 L 8.1 L (12.0-16.0) g/dl Hct 26.3 L 23.6 L (34.1-44.9) % MCV 93.6 93.3 (80.0-100.0) fL MCH 31.7 32.0 (25.0-34.0) pg MCHC 33.8 34.3 (32.0-36.0) g/dL RDW Std Deviation 42.9 40.9 (36.4-46.3) fL RDW Coeff of Kym 12.3 12.0 (11.5-14.5) % Plt Count 292 342 (130-400) K/uL MPV 9.1 L 9.3 L (9.4-12.3) fL Immature Gran % (Auto) 2.3 4.0 % Neut % (Auto) 88.1 72.5 % Lymph % (Auto) 7.2 17.9 % [place] % (Auto) 1.5 5.1 % Eos % (Auto) 0.6 0.3 % Baso % (Auto) 0.3 0.2 % Neut # (Auto) 6.02 4.59 (1.4-6.5) K/uL Lymph # (Auto) 0.49 L 1.13 L (1.2-3.4) K/uL [place] # (Auto) 0.10 L 0.32 (0.24-0.82) K/uL Eos # (Auto) 0.04 0.02 (0-0.50) K/uL Baso # (Auto) 0.02 0.01 (0-0.2) K/uL Immature Gran # (Auto) 0.16 H 0.25 H (0.00-0.02) K/uL Absolute Nucleated RBC 0.02 H 0.02 H (0-0) K/uL Nucleated RBC % (auto) 0.3 0.3 % Sodium (136-145) mmol/L Potassium (3.5-5.1) mmol/L Chloride (98-107) mmol/L Carbon Dioxide (21-32) mmol/L Anion Gap (3-11) BUN (6-23) mg/dl Creatinine (0.6-1.2) mg/dl Est Cr Clr Drug Dosing ml/min Est GFR ( Amer) ml/min Est GFR (Non-Af Amer) ml/min BUN/Creatinine Ratio (10-20) Glucose (70-99(Fasting)) mg/dl Calcium (8.5-10.1) mg/dl Total Bilirubin (0.2-1.0) mg/dl AST (13-39) U/L ALT (7-52) U/L Alkaline Phosphatase (34-104) U/L Total Protein (6.0-8.3) gm/dl Albumin (3.4-5.0) gm/dl Globulin (2.5-4.0) gm/dl Albumin/Globulin Ratio (0.9-2) HCG, Quant mIU/ml Ur Random Creatinine mg/dl U Random Total Protein (0-11.9) mg/dl Protein/Creatinin Ratio (0-0.2) SARS-CoV-2, RNA, NAAT (NEGATIVE) Blood Type Antibody Screen Antibody Identification Antibody ID Comment PE: General: Alert, orientedx3, NAD CVS: S1S2 RRR Lungs; CTAB Abd: soft, NT, ND, BS+, fundus firm, below Umbilicus Incision: Clean, dry, intact, healing well Perineum : No VB, pad dry Ext; NT, no edema AP: 37 yo s/p C Section, pod# 21, admitted for pp hemorrhage, stopped with uterotonics, normal US VSS Afebrile doing well Desires d/c this afternon All questions were answered Recommended hematology referral and she accepted D/C home , f/u in office Results & Data ([facility]) Vital Signs (Past 12 Hours) Vital Signs Temp Pulse Resp BP Pulse Ox O2 Del Method 09/01/22 08:00 36.9 C 54 L 16 117/75 99 Room Air 09/01/22 03:27 36.7 C 75 18 125/73 98 Room Air 08/31/22 23:38 36.7 C 87 18 138/80 98 Room Air
== END 2022-09-01 17:58 | disposition home or self-care (01) | DRG 776 ==
LOC: ED 06:40 → 4E1 10:16